=== PATIENT | female | born 1965 | race Caucasian/White ===

== ENCOUNTER 2021-07-30 07:56 | Emergency (ER) | payer BC ==
[2021-07-30 08:53] LABS: Absolute Lymphocytes (CBC) 0.5 K/uL (0.7-4.9); Basophils % 0.3 % (0-1.3); Hematocrit 35.9 % (36.0-45.0); Lymphocytes % 8.1 % (15.3-44.8); MPV 7.8 fL (7.6-11.3); RBC Red Blood Cell Count 4.68 M/uL (3.86-4.86)
[2021-07-30] MEDS ORDERED: HYDROMORPHONE HCL 2 MG/ML inj ONE (08:59)
[2021-07-30] MEDS ORDERED: ONDANSETRON 4 MG/2 ML VIAL ONE (08:59)
[2021-07-30] MEDS ORDERED: CEFTRIAXONE 1000 MG/VIAL ONE (08:59)
[2021-07-30 09:09] LABS: Albumin 3.1 g/dL (3.4-5.0); Bilirubin Total 0.3 mg/dL (0.2-1.0); Potassium 3.9 mmol/L (3.5-5.1); Protein, Total 7.4 g/dL (6.4-8.2)
--- NOTE | 2021-07-30 09:54 | RAD REPORT ---
EXAM DESCRIPTION: CT - Orbits W/Cont - 07/30/2021 9:08 am CLINICAL HISTORY: Swelling and redness right periorbital region x1 week COMPARISON: None. TECHNIQUE: Axial 2 mm thick images of the paranasal sinuses were obtained following nonionic IV cont rast administration. Coronal and sagittal reformatted images were reviewed. All CT scans are performed using dose optimization technique as appropriate and may include automated exposure control or mA/KV adjustment according to patient size. FINDINGS: Preseptal right periorbital soft tissues are thickened and edematous. No abnormality of th e globe, optic nerve or extraocular muscles noted. In the medial inferior postseptal right orbit there is a 15-18 millimeter sized area of edematous/inf lammatory soft tissue attenuation. Within this area of infectious/inflammatory type stranding there i s a 10 mm area of more hypodensity that could be a small loculated fluid collection. This abuts the c analiculi of the nasolacrimal apparatus. The lacrimal sac and nasolacrimal duct are opacified more pr ominently than seen on the left. Right-side ethmoid air cells are partially opacified. There is an ai r-fluid level in the right maxillary sinus. Mastoid air cells are clear. Remaining paranasal sinuses are without significant finding. Left globe and left orbital contents are unremarkable. IMPRESSION: Infectious/ inflammatory signal is present in the medial inferior aspect of the postsept al right orbit. Dacryocystitis or similar infectious/inflammatory process is suspected and needs clin ical correlation. Acute sinusitis changes are present involving the right-side ethmoid air cells and the right maxillar y sinus. Preseptal right periorbital cellulitis.
[2021-07-30] MEDS ORDERED: VANCOMYCIN/NS 1 gm 1 GM/250 ML BAG IVPB ONE (10:00)
--- NOTE | 2021-07-30 10:31 | EDPHYS ---
Physician Documentation [facility] Name: Valorie Gary Age: 55 yrs Sex: Female : 1965 Arrival Date: 07/30/2021 Time: 07:59 Bed 6 Private MD: ED Physician Krishna Chairez HPI: 07/30 08:26 This 55 yrs old Female presents to ER via Ambulatory with complaints of Eye ma2 Swelling, Eye Problem. 08:26 Onset: The symptoms/episode began/occurred gradually, 4 day(s) ago. Associated signs ma2 and symptoms: Pertinent negatives: chills, fever, headache. Severity of symptoms: At their worst the symptoms were moderate in the emergency department the symptoms are unchanged. The patient has not experienced similar symptoms in the past. has chronic sinusitis, has been having swelling and redness around right eye x 4 days, saw pcp and eye doctor and given doxycycline, today is day 4 with no improvement. of note she does not have eye pain or redness or any eye symptoms.. or pain with eye movement. her swelling and redness and pain is only around the eye. her pcp sent her to eye doctor as a prophylaxis measure. and her eye exam was normal . Historical: - Allergies: 08:15 No Known Allergies; ap3 - Immunization history:: Adult Immunizations up to date. - Social history:: Patient/guardian denies using alcohol, street drugs, The patient lives with family, Smoking status: Patient denies any tobacco usage or history of. - Family history:: not pertinent. ROS: 08:26 Constitutional: Negative for fever, chills, and weight loss. ma2 08:26 All other systems are negative. Exam: 08:26 Visual Acuity: Visual acuity is within normal limits. ma2 08:26 ENT: Nares patent. No nasal discharge, no septal abnormalities noted. Tympanic membranes are normal and external auditory canals are clear. Oropharynx with no redness, swelling, or masses, exudates, or evidence of obstruction, uvula midline. Mucous membranes moist. 08:26 Constitutional: This is a well developed, well nourished patient who is awake, alert, and in no acute distress. Head/Face: Normocephalic, atraumatic. ENT: Nares patent. No nasal discharge, no septal abnormalities noted. Tympanic membranes are normal and external auditory canals are clear. Oropharynx with no redness, swelling, or masses, exudates, or evidence of obstruction, uvula midline. Mucous membranes moist. Neck: Trachea midline, no thyromegaly or masses palpated, and no cervical lymphadenopathy. Supple, full range of motion without nuchal rigidity, or vertebral point tenderness. No Meningismus. Chest/axilla: Normal chest wall appearance and motion. Nontender with no deformity. No lesions are appreciated. Cardiovascular: Regular rate and rhythm with a normal S1 and S2. No gallops, murmurs, or rubs. Normal PMI, no JVD. No pulse deficits. Respiratory: Lungs have equal breath sounds bilaterally, clear to auscultation and percussion. No rales, rhonchi or wheezes noted. No increased work of breathing, no retractions or nasal flaring. Abdomen/GI: Soft, non-tender, with normal bowel sounds. No distension or tympany. No guarding or rebound. No evidence of tenderness throughout. 08:26 Eyes: Periorbital structures: cellulitis, that is moderate, on the right upper eyelid and right lower eyelid, erythema, that is moderate, on the right upper eyelid and right lower eyelid, swelling, that is moderate, on the right upper eyelid and right lower eyelid, Pupils: equal, round, and reactive to light and accomodation, Extraocular movements: intact throughout, Conjunctiva: normal, Corneas: are normal, Sclera: no appreciated abnormality, Anterior chamber: normal, Visual simmons: are intact, Examination of the other eye reveals no obvious gross abnormality. Vital Signs: 08:01 BP 160 / 97; Pulse 78; Resp 18 S; Temp 99.3(O); Pulse Ox 97% on R/A; aa5 09:19 BP 162 / 82; Pulse 74; Resp 16; Pulse Ox 98% on R/A; ap3 10:14 BP 130 / 78; Pulse 69; Pulse Ox 99% on R/A; ap3 MDM: 08:17 Patient medically screened. [facility] 08:26 Differential diagnosis: periorbital cellulitis, no cellulitis or eye condition. sd2 10:29 Data reviewed: vital signs, nurses notes. Counseling: I had a detailed discussion with ma2 the patient and/or guardian regarding: the historical points, exam findings, and any diagnostic results supporting the discharge/admit diagnosis, the presence of at least one elevated blood pressure reading (>120/80) during this emergency department visit, the need for outpatient follow up. Counseling: I had a detailed discussion with the patient and/or guardian regarding: the need to transfer to another facility. Response to treatment: the patient's symptoms have markedly improved after treatment. ED course: orbital cellulitis needs emergent optha, not available in our hospital, will transfer for higher level of care . 07/30 08:24 Order name: CBC with Diff; Complete Time: 09:58 ma2 07/30 08:24 Order name: CMP; Complete Time: 09:58 ma2 07/30 08:51 Order name: Orbits W/Cont; Complete Time: 09:58 EDMS 07/30 10:18 Order name: SARS-COV-2 RT PCR (Document "Date of Onset" if Symptomatic) eb Administered Medications: 08:50 Drug: Zofran (Ondansetron) 4 mg Route: IVP; Site: left antecubital; ap3 09:18 Follow up: Response: No adverse reaction ap3 08:50 Drug: Rocephin (cefTRIAXone) 1 grams Route: IV; Rate: calculated rate; Site: left ap3 antecubital; 09:18 Follow up: IV Status: Completed infusion ap3 08:51 Drug: Dilaudid (HYDROmorphone) 1 mg Route: IVP; Site: left antecubital; ap3 09:18 Follow up: Response: No adverse reaction; Pain is decreased; RASS: Alert and Calm (0) ap3 09:18 Drug: vancoMYCIN 1 grams Route: IVPB; Infused Over: 2 hrs; Site: left antecubital; ap3 11:25 Follow up: IV Status: Completed infusion ap3 Disposition Summary: 07/30/21 10:30 Transfer Ordered Transfer [facility] ma2 Reason: Higher level of care ma2 Condition: Stable ma2 Problem: new ma2 Symptoms: are unchanged ma2 Accepting Physician: Dr. Fierro(07/30/21 11:24) ap3 Diagnosis - Cellulitis of right orbit ma2 Discharge Instructions: - Discharge Summary Sheet ma2 Forms: - Medication Reconciliation Form ma2 - SBAR form ap3 Prescriptions: - Augmentin 875-125 mg Oral Tablet - take 1 tablet by ORAL route every 12 hours for 10 days; 20 tablet; Refills: 0, ma2 Product Selection Permitted - Clindamycin HCl 300 mg Oral Capsule - take 1 capsule by ORAL route every 6 hours for 10 days; 40 capsule; Refills: 0, ma2 Product Selection Permitted - Diclofenac Sodium 75 mg Oral Tablet Sustained Release - take 1 tablet by ORAL route 2 times per day; 30 tablet; Refills: 0, Product ma2 Selection Permitted - Medrol (Jadon) 4 mg Oral Tablets, Dose Pack - take 1 tablet by ORAL route as directed - follow package instructions; 1 ma2 packet; Refills: 0, Product Selection Permitted Signatures: Dispatcher [employer] EDMS Krishna Chairez MD MD ma2 Frieda Escalera RN RN ap3 Corrections: (The following items were deleted from the chart) 08:51 08:25 Maxillofacial W/Cont+CT.RAD.VALEREIZ ordered. EDMS EDMS 11:24 10:30 Dr. Fierro ma2 ap3
--- NOTE | 2021-07-30 10:31 | ER ---
Nurse's Notes [facility] Name: Valorie Gary Age: 55 yrs Sex: Female : 1965 Arrival Date: 07/30/2021 Time: 07:59 Bed 6 Private MD: Diagnosis: Cellulitis of right orbit Presentation: 07/30 08:01 Chief complaint: Patient states: right eyelid swelling and redness x 1 week ago, pt aa5 reports she has been taking doxycycline since Sunday and taking [place] 10 mg and Ibuprofen 800 mg without any pain relief or improvement. 08:01 Coronavirus screen: At this time, the client does not indicate any symptoms associated aa5 with coronavirus-19. Ebola Screen: No symptoms or risks identified at this time. Initial Sepsis Screen: Does the patient meet any 2 criteria? No. Patient's initial sepsis screen is negative. Does the patient have a suspected source of infection? No. Patient's initial sepsis screen is negative. Risk Assessment: Do you want to hurt yourself or someone else? Patient reports no desire to harm self or others. Onset of symptoms was July 2021. 08:01 Acuity: PARESH 4 aa5 08:01 Method Of Arrival: Ambulatory aa5 Historical: - Allergies: 08:15 No Known Allergies; ap3 - Immunization history:: Adult Immunizations up to date. - Social history:: Patient/guardian denies using alcohol, street drugs, The patient lives with family, Smoking status: Patient denies any tobacco usage or history of. - Family history:: not pertinent. Screenin:16 Abuse screen: Denies threats or abuse. Nutritional screening: No deficits noted. ap3 Tuberculosis screening: No symptoms or risk factors identified. Fall Risk None identified. Assessment: 08:13 General: Appears in no apparent distress. uncomfortable, Behavior is calm, cooperative, ap3 appropriate for age. Pain: Complains of pain in right eye. Neuro: Level of Consciousness is awake, alert, obeys commands, Oriented to person, place, time, situation, Appropriate for age. Cardiovascular: Patient's skin is warm and dry. Respiratory: Airway is patent. EENT: Eyes are tearing on right outer canthus, outer aspect of conjuctiva of right eye, iris of right eye, inner aspect of conjuctiva of right eye and right inner canthus Reports pain in right eye. Musculoskeletal: Swelling present in right eye. 08:41 Reassessment: Patient and/or family updated on plan of care and expected duration. Pain ap3 level reassessed. Patient is alert, oriented x 3, equal unlabored respirations, skin warm/dry/pink. 10:14 Reassessment: Patient and/or family updated on plan of care and expected duration. Pain ap3 level reassessed. Patient is alert, oriented x 3, equal unlabored respirations, skin warm/dry/pink. Patient updated by provider of plan of care. 10:49 Reassessment: patient report called to Will at [facility] ER. ap3 Vital Signs: 08:01 BP 160 / 97; Pulse 78; Resp 18 S; Temp 99.3(O); Pulse Ox 97% on R/A; aa5 09:19 BP 162 / 82; Pulse 74; Resp 16; Pulse Ox 98% on R/A; ap3 10:14 BP 130 / 78; Pulse 69; Pulse Ox 99% on R/A; ap3 ED Course: 07:59 Patient arrived in ED. am2 08:01 Arm band placed on Patient placed in an exam room, on a stretcher. aa5 08:11 Triage completed. aa5 08:13 Frieda Escalera, RN is Primary Nurse. ap3 08:16 Patient has correct armband on for positive identification. Bed in low position. Call ap3 light in reach. Side rails up X2. Pulse ox on. NIBP on. Door closed. Noise minimized. 08:17 Alexis Marsh FNP-C is [facility]. la1 08:17 Krishna Chairez MD is Attending Physician. ma2 08:52 Initial lab(s) drawn, by ar, sent to lab. Inserted saline lock: 20 gauge in left em1 antecubital area, using aseptic technique. Blood collected. 09:08 Orbits W/Cont In Process Unspecified. EDMS 10:09 ED physician to see patient. ap3 10:16 initiated a transfer with Marian from the [facility] Transfer Center. eb 10:24 administrative approval given by Marian Soares / patient has been accepted to [facility] Nataliia HARRIS/ / Holly Perez has accepted the patient in transfer/ report to be called to [phone]. 11:24 No provider procedures requiring assistance completed. Patient transferred, IV remains ap3 in place. Administered Medications: 08:50 Drug: Zofran (Ondansetron) 4 mg Route: IVP; Site: left antecubital; ap3 09:18 Follow up: Response: No adverse reaction ap3 08:50 Drug: Rocephin (cefTRIAXone) 1 grams Route: IV; Rate: calculated rate; Site: left ap3 antecubital; 09:18 Follow up: IV Status: Completed infusion ap3 08:51 Drug: Dilaudid (HYDROmorphone) 1 mg Route: IVP; Site: left antecubital; ap3 09:18 Follow up: Response: No adverse reaction; Pain is decreased; RASS: Alert and Calm (0) ap3 09:18 Drug: vancoMYCIN 1 grams Route: IVPB; Infused Over: 2 hrs; Site: left antecubital; ap3 11:25 Follow up: IV Status: Completed infusion ap3 Outcome: 10:30 ER care complete, transfer ordered by MD. mir 11:24 Transferred by ground EMS to [facility]. ap3 11:24 Condition: good 11:24 Discharge instructions given to patient, Instructed on the need for transfer, Demonstrated understanding of instructions. 11:24 Patient left the ED. ap3 Signatures: Dispatcher [employer] Carlito Babin em1 Trisha Milian, RN RN aa5 Alexis Marsh, MEDIA RELATIONS ASSOCIATE-C MEDIA RELATIONS ASSOCIATE-Cla1 Frieda Zhang Mohammad, MD MD ma2 Frieda Escalera RN RN ap3 Sunshine Lund
[2021-07-30 11:31] VITALS: TEMP 99.3
[2021-07-30 11:34] VITALS: BP 130/78; O2SAT 99
== END 2021-07-30 11:24 | disposition short-term general hospital (02) ==
LOC: ER 07:56
DX: H05.011 Cellulitis of right orbit (principal); Z20.822 Contact with and (suspected) exposure to COVID-19
CPT/HCPCS: 96365; 96367; 85025; 36415; 82565; 80053; 70481; 96375; 99285; 96366; U0003; Q9967; J1170; J3370; J2405